=== PATIENT | male | born 1985 | race Caucasian/White ===

== ENCOUNTER 2016-10-09 16:39 | Emergency (ER) | payer OTHER ==
[~2016-10-09 16:39] MED LIST: BACTRIM DS TABL1 TA1 PO; BACTRIM DS TABL1 TA2 PO; BENZONATATE PO; CARAFATE PO; FLONASE16 GM; NO MEDICATIONS; PHENERGAN25 MG PO; PREDNISONE PO; PRILOSEC PO; SUDAFED PO; VOLTAREN75 MG PO; ZITHROMAX PO; ZITHROMAX1 G/PKT PO
== END 2016-10-09 16:58 | disposition home or self-care (01) ==
LOC: SED 16:39
DX: S76.812A Strain of other specified muscles, fascia and tendons at thigh level, left thigh, initial encounter (principal); F17.210 Nicotine dependence, cigarettes, uncomplicated; Z90.89 Acquired absence of other organs; X58.XXXA Exposure to other specified factors, initial encounter
CPT/HCPCS: 99282; 99283

== ENCOUNTER 2016-11-08 16:57 | Emergency (ER) | payer OTHER | END 2016-11-08 17:03 | disposition home or self-care (01) | LOC: SED 16:57 | DX: M54.32 Sciatica, left side (principal); F17.210 Nicotine dependence, cigarettes, uncomplicated; Z90.89 Acquired absence of other organs; Z88.0 Allergy status to penicillin | CPT/HCPCS: 99282 ==